=== PATIENT | female | born 1990 | race Caucasian/White ===

== ENCOUNTER 2023-12-23 01:36 | Day surgery (SDC) | payer OTHER, SELFPAY ==
[2023-12-15 16:01] VITALS: BMI 21.7
--- NOTE | 2023-12-15 16:08 | SUR.PREOP ---
Report to the Outpatient Waiting Room, entrance under the green pavilion located off [facility], at time _0900_ on date 12/23/23_. Planned Procedure Time: _1100_. Time changes happen often and if your time is changed the preop area will call you the afternoon before. - You and your visitor will be asked to self-screen and do not enter if you have any COVID symptoms. - A mask is optional within the hospital at this time. Patients may have clear liquids (water, carbonated beverages, clear teas, apple juice) until 3 hours prior to surgery with a maximum of 20 ounces. - No food from midnight until time of surgery BEFORE 800 AM - Infants may have breast milk until 4 hours before surgery, formula 6 hours prior to surgery. - Children will be allowed to drink immediately following surgery. If applicable, please bring a bottle or sippy cup to assist with drinking. Juice, water, soda, and popsicles are readily available. For infants on formula, please bring formula the day of surgery. Pacifiers are allowed. Take the following medications with a SIP of water the morning of surgery: N/A DO NOT STOP ANY OF YOUR OTHER PRESCRIPTION MEDICATIONS PRIOR TO SURGERY ?EXCEPT THE FOLLOWING Medications to discontinue per physician ___HOLD MULTIVITAMIN 3 DAYS PRIOR Date to take last dose Please no make-up, nail khmer, hairspray, perfume, deodorant, or body powder the day of surgery. No jewelry (including any body piercings) or valuables the day of surgery, leave them at home. Please take a shower or bath the night before, or the morning of, surgery with an antibacterial soap. Wear comfortable, loose fitting clothing. Children are encouraged to wear pajamas. - Jewelry must be removed prior to entering the operating room. Rings and piercings that are not removed may be cut off. - The hospital will not accept responsibility for valuables. - Please leave all valuables, including medications, at home the day of surgery. If you are going home after surgery, a licensed batch mixing truck driver must drive you home. - NO public transportation without another adult if you receive anesthesia. - We recommend that an adult stay with you for 24 hours following discharge. - We also recommend that you do not drive, make important decision, drink alcoholic beverages, or take any drugs that were not prescribed by your health care provider for at least 24 hours after your discharge time. For Pediatric surgeries, we recommend two adults accompany the child home. Follow any additional instructions given to you from your surgeon. If you or anyone in your household have experienced Covid symptoms in the past week, please notify your surgeon or the nurse liaison at the phone number below for possible testing. Telephone instructions given to __PATIENT_and asked if any additional questions and then verbalized understanding. Patient advised to call surgeon office or pre surgery nurse liaison [phone] if any additional questions.
[2023-12-23] VITALS (7 sets, daily range): BP systolic 117–139; BP diastolic 63–88; PULSE 53–66; RESP 14–20; TEMP 36.5–36.6; O2SAT 93–100
[2023-12-23] MEDS: LACTATED RINGERS 1,000 ML 30 ML IV CONT (09:00)
[2023-12-23] MEDS: ACETAMINOPHEN 500 MG TABLET 1000 MG PO (10:20)
[2023-12-23] MEDS: SCOPOLAMINE 1 MG PATCH 1 PATCH TRANSDERM (10:30)
--- NOTE | 2023-12-23 10:30 | P.PNAN_ITS ---
Anes - Initial Pre Proc Eval Procedure: Operation Date: 12/23/23 11:00 Proposed Procedures p Hysteroscopy Dilation and Curettage - Finn Lambert MD Date/Time: 12/23/23 10:30 Surgeon: Finn Lambert MD Pre Op Diagnosis: Abnormal Uterine Bleeding Patient Data Age: 33 Gender: F Height: 1.7 m Weight: 199.58 kg Last Vital Signs Temp 97.7 F 12/23/23 10:16 Pulse 58 L 12/23/23 10:16 Resp 16 12/23/23 10:16 BP 124/72 12/23/23 10:16 Pulse Ox 97 12/23/23 10:16 O2 Del Method Room Air 12/23/23 10:16 Allergies Allergy/AdvReac Type Severity Reaction Status Date / Time No Known Allergies Allergy Verified 12/23/23 10:13 Home Medications Medication Instructions Recorded Confirmed Type multivitamin 1 tablet PO DAILY 12/15/23 12/23/23 History Patient hx anesthesia problems: post op nausea/vomiting Family hx anesthesia problems: none Results Review: All pre-operative results and documents have been reviewed as part of the pre- operative evaluation. [facility] Social History Social History Smoking status: Never smoker Living arrangements: with family Anes - Eval Final PreProcedure Day of Procedure 12/23/23 10:30 Patient weight: super morbidly obese Heart: regular rate and rhythm Lungs: clear to auscultation Airway: Mallampati scale class III Neurological: alert and oriented Last oral intake: >/= 8 hours ASA classification: IV Emergent: no Anesthetic plan: proceed Anesthesia type and monitoring: general GIVS and LMA and standard monitoring Results Review: All pre-operative results and documents have been reviewed as part of the pre- operative evaluation. Informed Consent: The patient's anesthetic plan and its attendant risks and benefits were discussed with the patient/family/POA. Questions were solicited and answers provided to the satisfaction of the patient/family/POA.
--- NOTE | 2023-12-23 10:38 | PM.IMHP ---
H&P: HPI History of Present Illness Date/Time: 12/23/23 10:38 Chief Complaint: abnormal uterine bleeding Narrative: Patient is a 33 year old female who presents for hysteroscopy D&C indicated for abnormal uterine bleeding. She reports constant bleeding with clots since July, with a break starting in November. She had similar symptoms previously and was found to have polyps. Her bleeding resolved after hysteroscopy D&C with polypectomy. Pelvic US was difficult to interpret as endometrium was poorly visualized. Given history and concern for endometrial hyperplasia in the setting of obesity and excess estrogen, recommend endometrial sampling. R/b to EMB vs hysteroscopy D&C discussed and patient desires to proceed with HSC D&C. Review of Systems Review of Systems: All systems reviewed & are unremarkable except as noted in HPI and below PMFSH Social History Social History Smoking status: Never smoker Living arrangements: with family Meds Home Medications and Allergies Home Medications Medication Instructions Recorded Confirmed Type multivitamin 1 tablet PO DAILY 12/15/23 12/23/23 History Allergies Allergy/AdvReac Type Severity Reaction Status Date / Time No Known Allergies Allergy Verified 12/23/23 10:13 Vital Signs Vital Signs - 24 hr 12/23/23 10:16 Temperature 97.7 F Pulse Rate 58 L Respiratory Rate 16 Blood Pressure 124/72 Pulse Oximetry 97 Oxygen Delivery Room Air Exam Const: General: comfortable and no acute distress Eyes: General: appearance normal, both eyes and all related structures Resp: Effort & Inspection: normal respiratory effort Cardio: Rate: regular rate Skin: General skin exam: normal color Extrem: General: normal to inspection Psych: Mental Status: mental status grossly normal Assessment and Plan Assessment and plan (1) Abnormal uterine bleeding (AUB): Code(s): N93.9 - Abnormal uterine and vaginal bleeding, unspecified Status: Acute Assessment and Plan: - endometrium difficult to evaluate on US - hx of endometrial polyps causing AUB in the past - given obesity and concern for endometrial hyperplasia due to excess estrogen, recommend endometrial sampling - R/b/a of EMB vs hysteroscopy D&C discussed, patient desires hysteroscopy D&C - will proceed with procedure
--- NOTE | 2023-12-23 10:45 | WPDHPUPDATE1 ---
History and Physical Update Update Date/Time: 12/23/23 10:45 History and Physical has been reviewed, including an updated exam of the patient. There are NO changes in the patient's condition. Risks, benefits, and alternatives have been discussed and questions answered. Patient agrees to proceed with procedure.
[2023-12-23] MEDS: LIDO 1%/EPINEPHRINE 1:100,000 50 ML VIAL 10 ML INFILTRATE (10:52)
[2023-12-23] MEDS: fentaNYL CITRATE INJ (*CRX) 100 MCG/2 ML VIAL 25 MCG IV PUSH ×2 (11:55→12:08)
--- NOTE | 2023-12-23 12:43 | W.PM.PROC2 ---
Procedure Note - Detailed Date of Procedure 12/23/23 Pre-op Diagnosis Abnormal Uterine Bleeding Post-op Diagnosis Same Procedure Performed hysteroscopy D&C Surgeon Finn Lambert MD Anesthesia MAC Indications Heavy bleeding since July Findings overgrown endometrium throughout cavity Description of Procedure The patient was then taken to the operating room with IVFs running. She was placed in the dorsal supine position where she received MAC without any difficulty.?? The patient was placed in the dorsal lithotomy position using jef stirrups. EUA revealed the above findings. She was then prepped and draped in a normal sterile fashion. A time-out procedure was performed and all members of the OR team agreed on the patient and plan. A bivalved speculum was then inserted into the patient's vagina.? The anterior lip of the cervix was grasped with a single tooth tenaculum. The cervical os was dilated using debbie dilators.? The uterus was sounded to 10 cm.? At this point, the hysteroscope was then inserted into the uterine cavity. Saline was used as the distension medium. The above findings were noted. Both tubal ostia were visualized and pictures were taken.? The hysteroscope was then removed. At this point, utilizing a medium sized endometrial curette, a sharp curettage was performed and the specimen sent to pathology.? The tenaculum was removed; the anterior lip of the cervix was hemostatic.? The speculum was then removed. The patient tolerated the procedure well.? Sponge, lap, needle, and instrument counts were correct X2.? The patient was taken out of the dorsal lithotomy position and awakened from anesthesia and taken to the recovery room in stable condition. Pathology Yes Complications No immediate complications Condition Stable Disposition Same day
== END 2023-12-23 13:10 | disposition home or self-care (01) ==
PROVIDERS: PCP Family Medicine; Visit Provider Obstetrics & Gynecology
PROC: 0U5B8ZZ Destruction of Endometrium, Via Natural or Artificial Opening Endoscopic (ICD-10-PCS; CPT 58563; principal; 2023-12-23 11:00)
DX: N93.9 Abnormal uterine and vaginal bleeding, unspecified (principal); E66.01 Morbid (severe) obesity due to excess calories; Z68.44 Body mass index [BMI] 60.0-69.9, adult
CPT/HCPCS: 58558; 88305; A9270; J1100; J2250; J2405; J2704; J3010; J7120